=== PATIENT | female | born 1980 | race Caucasian/White ===

== ENCOUNTER 2018-02-26 08:22 | Emergency (ER) | payer OTHER ==
[~2018-02-26] VITALS: Ht 167.6 cm; Wt 80.7 kg
[2018-02-26] MEDS ORDERED: NORVASC2.5 M1 (08:41)
[2018-02-26] MEDS ORDERED: AVALIDE 300-121 EACH (08:41)
[2018-02-26] MEDS ORDERED: INTESTINEX680 M1 PO (14:04)
[2018-02-26] MEDS ORDERED: ZANTAC150 MG PO (14:04)
== END 2018-02-26 14:03 | disposition home or self-care (01) ==
LOC: ER 08:22
DX: K52.9 Noninfective gastroenteritis and colitis, unspecified (principal)